=== PATIENT | female | born 1995 | race Caucasian/White ===

== ENCOUNTER 2024-01-15 15:04 | Emergency (ER) | payer OTHER ==
[~2024-01-15] VITALS: Ht 162.6 cm; Wt 91.4 kg
[2024-01-15 15:44] LABS: BASO % 0.3 % (0.0-1.0); EOS # 0.1 10^3/uL (0.0-0.5); EOS % 1.5 % (0.0-3.0); HEMATOCRIT 30.6 % (36.0-47.0); HEMOGLOBIN 9.9 g/dl (12.0-15.5); LYMPH # 0.3 10^3/uL (1.5-5.0); LYMPH % 4.5 % (24.0-44.0); MEAN CORPUSCULAR HEMOGLOBIN 26.7 pg (27.0-33.0); MEAN CORPUSCULAR HGB CONC 32.4 g/dl (32.0-36.5); MEAN CORPUSCULAR VOLUME 82.5 fl (80.0-96.0); MONO # 0.3 10^3/uL (0.0-0.8); MONO % 5.5 % (2.0-8.0); NEUTROPHILS # 5.2 10^3/uL (1.5-8.5); NEUTROPHILS % 86.7 % (36.0-66.0); PLATELET COUNT, AUTOMATED 151 10^3/uL (150-450); RED BLOOD COUNT 3.71 10^6/uL (4.00-5.40)
[2024-01-15] MEDS ORDERED: PROZ10CA7 PO (16:04)
[2024-01-15 16:13] LABS: BLOOD UREA NITROGEN 6 MG/DL (9-23); CALCIUM LEVEL 8.6 MG/DL (8.5-10.1); CARBON DIOXIDE LEVEL 22 MMOL/L (20-31); CHLORIDE LEVEL 106 MMOL/L (98-107); CK-MB VALUE MASS < 1.0 NG/ML (<3.6); CPK CREATINE PHOSPHOKINASE 46 U/L (34-145); CREATININE FOR GFR 0.45 MG/DL (0.55-1.30); GLOMERULAR FILTRATION RATE > 60.0 (>60); GLUCOSE, FASTING 117 MG/DL (60-100); MB/CK RELATIVE INDEX 2.17 (< OR =4); POTASSIUM SERUM 3.7 MMOL/L (3.5-5.1); SODIUM LEVEL 136 MMOL/L (136-145)
[2024-01-15 17:35] VITALS: TEMP 99.1
[2024-01-15 17:40] LABS: CK-MB VALUE MASS < 1.0 NG/ML (<3.6)
[2024-01-15 17:41] LABS: CPK CREATINE PHOSPHOKINASE 43 U/L (34-145); MB/CK RELATIVE INDEX 2.32 (< OR =4)
[2024-01-15 18:45] VITALS: BP 110/59; O2SAT 98
[2024-01-15] MEDS ORDERED: PROA1AER2 INH (18:47)
[2024-01-15] MEDS ORDERED: CEFD1CAP9 PO (18:47)
== END 2024-01-15 19:09 | disposition home or self-care (01) ==
LOC: M ED 15:04
DX: O99.513 Diseases of the respiratory system complicating pregnancy, third trimester (principal); O23.43 Unspecified infection of urinary tract in pregnancy, third trimester; Z3A.34 34 weeks gestation of pregnancy; R00.0 Tachycardia, unspecified; F41.9 Anxiety disorder, unspecified; F32.A Depression, unspecified; Z88.8 Allergy status to other drugs, medicaments and biological substances; Z79.51 Long term (current) use of inhaled steroids; Z79.2 Long term (current) use of antibiotics

== ENCOUNTER 2024-02-18 19:09 | Outpatient (CLI) | payer OTHER ==
[~2024-02-18] VITALS: Ht 162.6 cm; Wt 94.5 kg
[~2024-02-18 19:09] MED LIST: CEFD1CAP9 PO; PROA1AER2 INH; PROZ10CA7 PO
[2024-02-18 19:22] VITALS: BP 118/67
[2024-02-18] MEDS ORDERED: ACET-683 PO (19:26)
== END 2024-02-18 20:35 | disposition home or self-care (01) ==
LOC: M LDO 19:09
PROVIDERS: ATTEND Advanced Practice Midwife
DX: O36.8130 Decreased fetal movements, third trimester, not applicable or unspecified (principal); Z3A.38 38 weeks gestation of pregnancy; Z88.1 Allergy status to other antibiotic agents
CPT/HCPCS: 59025; G0463

== ENCOUNTER 2024-02-20 12:48 | Inpatient (IN) | payer OTHER ==
[2024-02-20] VITALS (7 sets, daily range): BP systolic 93–114; BP diastolic 53–70
[~2024-02-20] VITALS: Ht 162.6 cm; Wt 94.4 kg
[~2024-02-20 12:48] MED LIST changes: +ACET-683 PO
[2024-02-20] MEDS ORDERED: HOME MED LIST COMPLETE! XX SCH (13:00)
[2024-02-20] MEDS ORDERED: PENICILLIN G POTASSIUM 5 MU IV 5 MU in D5W MINI-BAG PLUS 100 ML IV STA (13:32)
[2024-02-20] MEDS ORDERED: OXYTOCIN INJ 10UNITS/ML 1ML VIAL IM PRN (13:35)
[2024-02-20] MEDS ORDERED: CARBOPROST TROMETHAMINE 250 MCG/ML AMP IM PRN (13:35)
[2024-02-20] MEDS ORDERED: TRANEXAMIC ACID INJection 1,000 MG in NS 100 ML IV PRN (13:35)
[2024-02-20] MEDS ORDERED: OXYTOCIN DRIP 30 UNITS in IV 1 EA IV PRN ×3 (13:35)
[2024-02-20] MEDS ORDERED: LR 1,000 ML IV SCH (13:35)
[2024-02-20] MEDS ORDERED: METHYLERGONOVINE MALEATE 0.2MG/ML 1ML VIAL IM PRN (13:35)
[2024-02-20] MEDS ORDERED: LIDOCAINE 1% MDV 20ML VIAL INFIL PRN (13:35)
[2024-02-20] MEDS ORDERED: OXYTOCIN INJ 10UNITS/ML 1ML VIAL IV PRN (13:35)
[2024-02-20] MEDS: LACTATED RINGER'S 1000 ML IV STA (13:43)
[2024-02-20] MEDS: miSOPROStol 50MCG 1/2 TABLET PO PRN (14:08)
[2024-02-20 14:20] LABS: BASO % 0.2 % (0.0-1.0); EOS # 0.1 10^3/uL (0.0-0.5); EOS % 1.2 % (0.0-3.0); HEMATOCRIT 29.3 % (36.0-47.0); HEMOGLOBIN 9.3 g/dl (12.0-15.5); LYMPH # 1.2 10^3/uL (1.5-5.0); LYMPH % 14.2 % (24.0-44.0); MEAN CORPUSCULAR HEMOGLOBIN 25.4 pg (27.0-33.0); MEAN CORPUSCULAR HGB CONC 31.7 g/dl (32.0-36.5); MEAN CORPUSCULAR VOLUME 80.1 fl (80.0-96.0); MONO # 0.6 10^3/uL (0.0-0.8); MONO % 7.3 % (2.0-8.0); NEUTROPHILS # 6.2 10^3/uL (1.5-8.5); PLATELET COUNT, AUTOMATED 176 10^3/uL (150-450); RED BLOOD COUNT 3.66 10^6/uL (4.00-5.40); WHITE BLOOD COUNT 8.1 10^3/uL (4.0-10.0)
[2024-02-20] MEDS: LR 1,000 ML IV SCH (14:32)
[2024-02-20] MEDS ORDERED: **PENDING PCN ENTRY XX SCH (15:00)
[2024-02-20 15:22] LABS: HEPATITIS C VIRUS ABY INDEX 0.03 INDEX (<0.8)
[2024-02-20] MEDS ORDERED: PEN G POT 3,000,000 UNIT/50 ML 3,000,000 UNIT in IV 1 EA IV SCH (17:35)
[2024-02-20] MEDS: PENICILLIN G POTASSIUM 5 MU IV 5 MU in D5W MINI-BAG PLUS 100 ML IV STA (18:35)
[2024-02-20] MEDS: PEN G POT 3,000,000 UNIT/50 ML 3,000,000 UNIT in IV 1 EA IV SCH (22:52)
[2024-02-21] VITALS (29 sets, daily range): BP systolic 95–139; BP diastolic 50–86; O2SAT 98
[2024-02-21] MEDS: OXYTOCIN DRIP 30 UNITS in IV 1 EA IV SCH ×2 (10:24→18:41)
[2024-02-21] MEDS ORDERED: ePHEDrine SULFATE 25 MG/5 ML(5MG/ML) SYRINGE IVP PRN (13:25)
[2024-02-21] MEDS ORDERED: EPIDURAL/PCA KEYS XX PRN (13:25)
[2024-02-21] MEDS ORDERED: LR 500 ML IV PRN (13:25)
[2024-02-21] MEDS ORDERED: diphenhydrAMINE 50MG/ML VIAL IV PRN (13:25)
[2024-02-21] MEDS ORDERED: NALOXONE INJ 0.4MG/1ML VIAL IV PRN (13:25)
[2024-02-21] MEDS ORDERED: ONDANSETRON 4MG 2ML VIAL IV PRN ×2 (13:25→17:35)
[2024-02-21] MEDS ORDERED: FENTANYL 2MCG/ML ROPIVACAINE 0.2% IN 0.9% NACL 100ML IVBAG As Ordered ONE (13:27)
[2024-02-21] MEDS: FENTANYL/ROPIVACAINE/NACL BAG 100 ML EPIDURAL SCH (14:00)
[2024-02-21] MEDS ORDERED: IBUPROFEN 600MG TAB PO PRN (17:35)
[2024-02-21] MEDS ORDERED: ANUSOL HC CREAM 30GM TOP PRN (17:35)
[2024-02-21] MEDS ORDERED: CALCIUM CARBONATE 500 MG CHEW U/D PO PRN (17:35)
[2024-02-21] MEDS ORDERED: ACETAMINOPHEN TAB 650MG DOSE (2X325MG) PO PRN (17:35)
[2024-02-22] MEDS: IBUPROFEN 800 MG TAB PO PRN (00:45)
[2024-02-22] MEDS: ACETAMINOPHEN 500 MG TAB PO PRN (00:46)
[2024-02-22] MEDS: DIBUCAINE 1% OINTMENT 30GM TOP PRN (01:47)
[2024-02-22 06:19] VITALS: BP 96/54; O2SAT 98
[2024-02-22] MEDS: DOCUSATE SODIUM 100MG CAPSULE PO PRN (08:23)
[2024-02-22] MEDS: PRENATAL VITAMINS CHEWABLE TABLET PO SCH (08:23)
[2024-02-22] MEDS: FERROUS SULFATE 325MG TAB PO SCH (09:00)
[2024-02-22] MEDS: RHO(D) IMMUNE GLOBULIN/MALTOSE 500MCG(2500IU)/2.2ML VIAL (WINRHO) IM SCH (11:53)
[2024-02-22 18:00] VITALS: BP 117/62; O2SAT 97
[2024-02-23 06:16] VITALS: BP 141/68; O2SAT 98
[2024-02-23] MEDS ORDERED: MEASLES,MUMPS,RUBELLA VACCINE INJ (MMR-II) SC.IMMUN ONE (09:00)
[2024-02-23] MEDS ORDERED: IBUP80TA PO (11:19)
[2024-02-23] MEDS ORDERED: ACET-683 PO (11:19)
== END 2024-02-23 12:10 | disposition home or self-care (01) | DRG 807 ==
LOC: M LDI 12:48 → M OBS 02-21 19:38
PROVIDERS: ADMIT Obstetrics & Gynecology; ATTEND Obstetrics & Gynecology
PROC: 3E033VJ Introduction of Other Hormone into Peripheral Vein, Percutaneous Approach (ICD-10-PCS; 2024-02-20)
PROC: 10E0XZZ Delivery of Products of Conception, External Approach (ICD-10-PCS; principal; 2024-02-21)
DX: O99.824 Streptococcus B carrier state complicating childbirth (principal); Z37.0 Single live birth; Z3A.39 39 weeks gestation of pregnancy

== ENCOUNTER 2024-06-27 22:04 | Emergency (ER) | payer OTHER ==
[~2024-06-27 22:04] MED LIST changes: +IBUP80TA PO
[2024-06-27 22:06] VITALS: TEMP 97.2
[2024-06-27 23:09] LABS: BASO # 0.1 10^3/uL (0.0-0.2); BASO % 0.9 % (0.0-1.0); EOS # 0.2 10^3/uL (0.0-0.5); EOS % 3.9 % (0.0-3.0); HEMATOCRIT 36.1 % (36.0-47.0); HEMOGLOBIN 11.8 g/dl (12.0-15.5); MEAN CORPUSCULAR HEMOGLOBIN 26.5 pg (27.0-33.0); MEAN CORPUSCULAR HGB CONC 32.7 g/dl (32.0-36.5); MEAN CORPUSCULAR VOLUME 81.1 fl (80.0-96.0); MONO # 0.6 10^3/uL (0.0-0.8); MONO % 10.7 % (2.0-8.0); NEUTROPHILS # 2.5 10^3/uL (1.5-8.5); NEUTROPHILS % 46.3 % (36.0-66.0); PLATELET COUNT, AUTOMATED 234 10^3/uL (150-450); RED BLOOD COUNT 4.45 10^6/uL (4.00-5.40); WHITE BLOOD COUNT 5.3 10^3/uL (4.0-10.0)
[2024-06-27 23:36] LABS: LIPASE 44 U/L (12-53)
[2024-06-27 23:38] LABS: ALBUMIN 3.7 G/DL (3.2-5.2); ALKALINE PHOSPHATASE 134 U/L (35-104); ALT/SGPT 17 U/L (7.0-40); AST/SGOT 15 U/L (<34); BILIRUBIN,DIRECT < 0.1 MG/DL (<0.4); BILIRUBIN,TOTAL 0.2 MG/DL (0.3-1.2); BLOOD UREA NITROGEN 13 MG/DL (9-23); CALCIUM LEVEL 8.5 MG/DL (8.5-10.1); CARBON DIOXIDE LEVEL 23 MMOL/L (20-31); CHLORIDE LEVEL 108 MMOL/L (98-107); CREATININE FOR GFR 0.56 MG/DL (0.55-1.30); GLOMERULAR FILTRATION RATE > 60.0 (>60); GLUCOSE, FASTING 105 MG/DL (60-100); HCG, SERUM QUALITATIVE NEGATIVE (NEGATIVE); POTASSIUM SERUM 3.9 MMOL/L (3.5-5.1); SODIUM LEVEL 141 MMOL/L (136-145)
[2024-06-28 04:00] VITALS: BP 104/55; O2SAT 99
== END 2024-06-28 04:51 | disposition home or self-care (01) ==
LOC: M ED 22:04
DX: R10.9 Unspecified abdominal pain (principal); Z88.8 Allergy status to other drugs, medicaments and biological substances; Z79.1 Long term (current) use of non-steroidal anti-inflammatories (NSAID); Z79.899 Other long term (current) drug therapy